=== PATIENT | male | born 2005 | race Two or more races ===

== ENCOUNTER 2024-06-05 14:16 | Emergency (ER) | payer MEDICAID, SELFPAY ==
[2024-06-05 14:17] VITALS: BMI 39.1
[2024-06-05 14:46] VITALS: BP 148/82; PULSE 74; RESP 16; TEMP 37.2; O2SAT 98
--- NOTE | 2024-06-05 14:48 | PD.EDWOUND ---
ED Wound/Laceration-RME/HPI General Chief Complaint: Hand/Wrist Problems Stated Complaint: Lac to left hand Time Seen by Provider: 06/05/24 14:50 Source: patient Arrival date/time: 06/05/24 14:16 19-year-old male with no known medical history presents to the emergency room with a chief complaint of a laceration to his left hand. Patient states he was cutting sheet rock and sliced his finger. Mode of arrival: ambulatory Limitations: no limitations Related Data Allergies Allergy/AdvReac Type Severity Reaction Status Date / Time No Known Allergies Allergy Verified 06/05/24 14:17 Review of Systems Review of Systems Systems Reviewed: All systems reviewed, normal except as documented Constitutional Constitutional: Reports system reviewed and no additional complaints, except as documented, Denies fatigue, Denies fever(s), Denies headache(s) and Denies weakness Eyes Eyes: Reports system reviewed and no additional complaints, except as documented, Denies blurry vision and Denies change in vision ENT Ears, Nose, Mouth, and Throat: Reports system reviewed and no additional complaints, except as documented, Denies otalgia, Denies headache(s), Denies nasal congestion, Denies throat swelling and Denies vertigo Cardiovascular Cardiovascular: Reports system reviewed and no additional complaints, except as documented, Denies chest pain, Denies dyspnea and Denies dyspnea on exertion Respiratory Respiratory: Reports system reviewed and no additional complaints, except as documented, Denies chest congestion, Denies cough, Denies dyspnea, Denies dyspnea on exertion and Denies wheezing Gastrointestinal Gastrointestinal: Reports system reviewed and no additional complaints, except as documented, Denies abdominal pain, Denies cramping, Denies nausea and Denies vomiting Genitourinary Genitourinary: Reports system reviewed and no additional complaints, except as documented, Denies dysuria and Denies hematuria Musculoskeletal Musculoskeletal: Reports system reviewed and no additional complaints, except as documented and Denies back pain Integumentary/Breasts Skin/Breast: Reports system reviewed and no additional complaints, except as documented and Reports wounds Neurologic Neurologic: Reports system reviewed and no additional complaints, except as documented, Denies confusion, Denies headache(s), Denies lack of coordination, Denies vertigo and Denies weakness Psychiatric Psychiatric: Reports system reviewed and no additional complaints, except as documented, Denies anxiety, Denies confusion, Denies depression, Denies paranoia, Denies suicidal ideation and Denies tactile hallucinations Endocrine Endocrine: Reports system reviewed and no additional complaints, except as documented and Denies fatigue Hematologic/Lymphatic Hematologic/Lymphatic: Reports system reviewed and no additional complaints, except as documented and Denies lymphadenopathy Allergic/Immunologic Allergic/Immunologic: Reports system reviewed and no additional complaints, except as documented, Denies throat swelling, Denies urticaria and Denies wheezing Past Medical History Social History SMOKING STATUS: Never smoker ED Exam General Limitations: Present no limitations General appearance: Present alert and in no apparent distress Head Head exam: Present atraumatic Eye Eye exam: Present normal appearance, PERRL and EOMI ENT ENT exam: Present normal exam, normal oropharynx and mucous membranes moist Neck Neck exam: Present normal inspection, full ROM and trachea midline Chest Chest inspection: Present normal inspection and symmetric chest wall rise Respiratory Respiratory exam: Present normal lung sounds bilaterally Cardiovascular Cardiovascular exam: Present regular rate, normal rhythm and normal heart sounds Abdominal Exam Abdominal exam: Present soft and normal bowel sounds Extremities Exam Extremities exam: Present normal inspection and full ROM Expanded Upper Extremity Exam Shoulder exam: Present normal inspection Arm exam: Present normal inspection Elbow exam: Present normal inspection Forearm/Wrist exam: Present normal inspection Hand exam: Present normal inspection Hand L/R front image:  1. laceration Vascular exam: Normal capillary refill Back Exam Back exam: Present normal inspection and full ROM Neurological Exam Neurological exam: Present alert, oriented X3 and CN II-XII intact Psychiatric Psychiatric exam: Present normal affect and normal mood Skin Skin exam: Present warm, dry, intact and normal color Course Quality Measures none Orders Category Date Time Status Set Up Suture Tray STAT Care 06/05/24 14:48 Completed Wound Care NOW Care 06/05/24 14:48 Completed Lidocaine 1% 20 ml [Xylocaine 1% 20 ML] Med 06/05/24 14:48 Discontinued 20 ml INFL X1 ONE TET,DIP/PERT AC (Adult)-Tdap [Boostrix Adult (Tdap) Med 06/05/24 14:48 Discontinued Vacc] 0.5 ml IMI .ONCE ONE Vital Signs Vital signs: Vital Signs Temperature 98.9 F 06/05/24 14:46 Pulse Rate 74 06/05/24 14:46 Respiratory Rate 16 06/05/24 14:46 Blood Pressure 148/82 H 06/05/24 14:46 Pulse Oximetry (%) 98 06/05/24 14:46 Oxygen Delivery Method Room Air 06/05/24 14:46 O2 saturation within normal limits Procedures -ED Laceration Laceration 1: Site: hand Side (If applicable): left Size (cm): 3 Description: linear and irregular Depth: simple, single layer Local Anesthetic: lidocaine 1% Pre-repair: irrigated extensively Skin layer closed with: nylon Size (cm): 4-0 Number of sutures: 4 Technique: simple, interrupted Wound / Laceration MDM Narrative MDM Narrative:: 19-year-old male with no known medical history presents to the emergency room with a chief complaint of a laceration to his left hand. Patient states he was cutting sheet rock and sliced his finger. Patient is hemodynamically stable and in no apparent distress. Physical examination shows a laceration to the left thumb. Patient states he was helping doing yard work and sliced his hand on some sheet rock. Patient states he does not know when his last tetanus vaccination was. There is about a 3 cm laceration to the thumb on the left hand. The laceration occured 1 hour ago The mechanism of injury was slicing it on a sheet rock Sensation is intact. There is full ROM. There is no exposed tendons. No foreign bodies. Lidocaine 1% was used for anesthesia. The wound was irrigated extensively with normal saline. 4 sutures were placed. A dressing was placed. There were no complications. Patient was educated to keep the area clean and dry for 24 hours, then clean daily with soap and water. Patient was educated to return for any signs of infection including swelling pain redness pus or fever and to make an appointment with primary care provider in 48 hours. Patient was educated to follow up with primary or return to emergency room for suture removal in the next 7-10 days. Patient data External records reviewed:: [facility] previous records Clinical information provided by:: patient Social determinants that could affect healthcare access:: none Patient has the following chronic illnesses:: No chronic illness How is presenting disease/condition affected by chronic disease/condition?: no chronic disease Evaluation data The following diagnostics were reviewed and interpreted by me:: lab results and radiology exam(s) Lab and/or radiology exams considered but not ordered:: Labs and radiology exams considered and ordered Interpretation Summary: N/A Medications / Prescriptions Medications or Prescriptions considered but not ordered:: Medication given Medication administrations:: Medication Administration History Discontinued Medications Diphtheria/Tetanus/Acell Pertussis (Diphth,Pertuss(Acell),Tet Vac 0.5 Ml Syr- Adult) 0.5 ml IMi .ONCE ONE Stop: 06/05/24 14:49 Last Admin: 06/05/24 15:06 Dose: 0.5 ml Documented By: Lidocaine HCl (Lidocaine Hcl 1% 20 Ml Vial) 20 ml INFL X1 ONE Stop: 06/05/24 14:49 Last Admin: 06/05/24 15:06 Dose: 20 ml Documented By: Medication given Consultations Consultation(s) initiated? (list below): No Diagnosis Wound Differential Diagnosis: laceration, abscess, abrasion and avulsion of skin Most likely diagnosis given after review of the tests above:: Laceration Admission Indicated Admission indicated?: not indicated Admission Request Was there a request for admission?: No Disposition Plan Disposition Plan: Discharge Discharge Attestation Discharge Attestation: The patient and all family members were given an opportunity to ask questions and understood the discharge instructions. Discharge instructions specifically effects, indications for sooner follow up or return to the emergency department, and the expected course of current diagnosis. Patient condition: Stable Discharge Plan Plan Patient Disposition: HOME (Self Care) Prescriptions/Referrals Referrals: Romeo Grey MD [Primary Care Provider] - In 1 week Problem List Clinical Impression: Laceration Patient/Caregiver Discharge Instructions Additional Instructions: Please follow-up with your primary care provider in the next 24 to 48 hours. Please keep your wound clean and dry for the first 24 hours and then you can clean it with soap and water. You can return in 7 to 10 days for suture removal. For any evidence of worsening signs or symptoms return the emergency room immediately Print Language: [place] Stand Alone Forms: Shreya Award Info., Patient Portal Info Letter PA/[employer] Supervising Physician HETAL/OCTAVIO Supervising Physician: Dr Negron
[2024-06-05] MEDS: DIPHTH,PERTUSS(ACELL),TET VAC 0.5 ML SYR- ADULT IMi (15:06)
[2024-06-05] MEDS: LIDOCAINE HCL 1% 20 ML VIAL INFL (15:06)
== END 2024-06-05 16:09 | disposition home or self-care (01) ==
PROVIDERS: Emergency Provider Emergency Medicine; PCP Family Medicine
DX: S61.412A Laceration without foreign body of left hand, initial encounter (principal); W45.8XXA Other foreign body or object entering through skin, initial encounter; Z23 Encounter for immunization
CPT/HCPCS: 12002; 90471; 90715; 99283; J3490